=== PATIENT | male | born 1955 | race Caucasian/White ===

== ENCOUNTER 2020-12-18 07:28 | Inpatient (IN) | payer BC, OTHER ==
[~2020-12-18] VITALS: Ht 190.5 cm; Wt 96.5 kg
[2020-12-18] MEDS ORDERED: NITROGLYCERIN 0.4 MG SL TAB SL ONE ×3 (07:45→10:00)
[2020-12-18] MEDS ORDERED: ONDANSETRON HCL 4 MG/2 ML VIAL IV ONE (08:00)
[2020-12-18] MEDS ORDERED: METOPROLOL TARTRATE 1MG/1ML-5ML VIAL IV ONE (08:00)
[2020-12-18] MEDS ORDERED: SODIUM CHLORIDE 0.9% 1,000 ML IVB ONE (08:00)
[2020-12-18] MEDS ORDERED: ENOXAPARIN SOD 100 MG/1 ML SYRINGE SC ONE (08:00)
[2020-12-18] MEDS ORDERED: SODIUM CHLORIDE 0.9% 1,000 ML IV ONE (08:00)
[2020-12-18] MEDS ORDERED: ASPirin 81 mg TAB PO ONE (08:00)
[2020-12-18 08:04] LABS: Basophils # (auto) 0 10 ^3/uL (0-0.2); Basophils % (auto) 0.8 % (0.0-2.0); Eosinophils # (auto) 0.1 10 ^3/uL (0-0.8); Eosinophils % (auto) 2.2 % (0.0-7.0); Hematocrit 47.5 % (41.0-53.0); Hemoglobin 16.8 g/dL (13.5-17.5); Lymphocytes # (auto) 2.1 10 ^3/uL (0.4-5.4); Mean Corpuscular Hemoglobin 31.4 pg (28.0-32.0); Mean Corpuscular Hgb Conc. 35.3 g/dL (32.0-36.0); Mean Corpuscular Volume 88.9 fL (80.0-100.0); Monocytes # (auto) 0.4 10 ^3/uL (0-1.3); Monocytes % (auto) 6.2 % (0.0-12.0); Neutrophils # (auto) 3.2 10 ^3/uL (1.6-8.6); Neutrophils % (auto) 54.8 % (37.0-80.0); Nucleated Red Blood Cells % 0.2 %; Red Blood Cells 5.34 10^6/uL (4.5-5.90); Red Cell Distribution Width 13.3 % (11.8-14.3); White Blood Cell 5.9 10^3/uL (4.4-10.8)
[2020-12-18 08:19] LABS: INR 1.05 (0.9-1.15); Partial Thromboplastin Time 28.1 sec (23.6-33.0)
[2020-12-18 08:29] LABS: Alanine Aminotransferase 27 U/L (16-61); Albumin 3.7 g/dL (3.4-5.0); Anion Gap 7 (5-15); Blood Urea Nitrogen 13 mg/dL (7-18); Calcium 9.7 mg/dL (8.5-10.1); Carbon Dioxide 24 mmol/L (21-32); Chloride 105 mmol/L (98-107); Glucose 310 mg/dL (74-106); Magnesium 2.4 mg/dL (1.6-2.6); Potassium 4.1 mmol/L (3.5-5.1); Sodium 136 mmol/L (136-145)
[2020-12-18] MEDS ORDERED: MORPHINE SULF INJ 2 MG/ML SYRINGE 1ML IV PRN ×3 (08:30→09:45)
[2020-12-18 08:34] LABS: Alkaline Phosphatase 104 U/L (45-117); Aspartate Aminotransferase 13 U/L (15-37); BUN/Creatinine Ratio 16.7; Bilirubin, Total 0.3 mg/dL (0.2-1.0); GFR African American 129 mL/min; GFR Non-African American 107 mL/min; Total Protein 7.8 g/dL (6.4-8.2)
[2020-12-18 09:08] LABS: Urine WBC None Seen /hpf (0 - 3)
[2020-12-18 09:29] LABS: Urine Bacteria NONE SEEN /hpf (None Seen); Urine Blood Negative /uL (Negative); Urine Specific Gravity 1.029 (1.001-1.035)
[2020-12-18] MEDS ORDERED: ONDANSETRON HCL 4 MG/2 ML VIAL IV PRN (09:45)
[2020-12-18] MEDS ORDERED: DEXTROSE (50%) 50ML SYRG IV PRN (09:45)
[2020-12-18] MEDS ORDERED: NITROGLYCERIN 0.4 MG SL TAB SL PRN (09:45)
[2020-12-18] MEDS ORDERED: NITROGLYCERIN 50MG/250ML 250 ML IV ONE (09:45)
[2020-12-18] MEDS ORDERED: HYDROcodone-ACET 5/325MG TAB PO PRN (09:45)
[2020-12-18] MEDS ORDERED: ACETAMINOPHEN 500 MG TAB PO PRN (09:45)
[2020-12-18] MEDS: ASPirin-EC 81 mg tab PO SCH (10:49)
[2020-12-18] MEDS: LISINOPRIL 10 MG TAB PO SCH (10:49)
[2020-12-18] MEDS: InsuLIN REG 1unit/0.01ml Soln (100units/ml) SC SCH ×2 (12:05→23:42)
[2020-12-18] MEDS: ACCU-CHEK COMFORT CURVE STRIP VI SCH ×2 (12:06→23:33)
[2020-12-18] MEDS ORDERED: LIDOCAINE 2%HCL (LOCAL ANESTH.) INJ 20ML MDV ONE (14:11)
[2020-12-18] MEDS ORDERED: fentaNYL CITRATE 100 MCG/2 ML VL ONE (14:15)
[2020-12-18] MEDS ORDERED: ANGIOMAX 250 MG VIAL IV ONE (14:15)
[2020-12-18] MEDS ORDERED: MIDAZOLAM HCL 2MG/2ML 2ml VIAL (1mg/ml) ONE (14:16)
[2020-12-18] MEDS ORDERED: SODIUM CHL 0.9% 50 ML ONE (14:16)
[2020-12-18] MEDS ORDERED: IOHEXOL 350 MG/ML 100ML IJ ONE (14:47)
[2020-12-18] MEDS ORDERED: ATROPINE SULF 1 MG/10ml SYR ONE (14:50)
[2020-12-18] MEDS ORDERED: EPINEPHrine HCL 1 MG/10 ML SYRG ONE (14:50)
[2020-12-18] MEDS ORDERED: TICAGRELOR 90 MG TAB ONE (14:57)
[2020-12-18 17:00] VITALS: BP 125/79
[2020-12-18 17:47] VITALS: BP 125/79
[2020-12-18] MEDS: TICAGRELOR 90 MG TAB PO SCH (21:30)
[2020-12-18] MEDS: ATORVASTATIN 20 MG TAB PO SCH (21:30)
[2020-12-18 22:00] VITALS: BP 107/69
[2020-12-19 05:16] VITALS: BP 107/64
[2020-12-19] MEDS: ACCU-CHEK COMFORT CURVE STRIP VI SCH ×4 (05:41→18:10)
[2020-12-19] MEDS: InsuLIN REG 1unit/0.01ml Soln (100units/ml) SC SCH ×4 (05:44→18:12)
[2020-12-19 09:00] VITALS: BP 110/73
[2020-12-19] MEDS ORDERED: glipiZIDE 5 MG TAB PO ONE (09:45)
[2020-12-19] MEDS: TICAGRELOR 90 MG TAB PO SCH ×2 (10:29→21:50)
[2020-12-19] MEDS: ASPirin-EC 81 mg tab PO SCH (10:30)
[2020-12-19] MEDS: LISINOPRIL 10 MG TAB PO SCH (10:30)
[2020-12-19 12:38] VITALS: BP 132/77
[2020-12-19 16:59] VITALS: BP 105/70
[2020-12-19] MEDS: glipiZIDE 5 MG TAB PO SCH (18:02)
[2020-12-19] MEDS: ATORVASTATIN 20 MG TAB PO SCH (21:50)
[2020-12-19 22:00] VITALS: BP 104/61
[2020-12-20] MEDS: InsuLIN REG 1unit/0.01ml Soln (100units/ml) SC SCH ×3 (00:32→12:00)
[2020-12-20 05:00] VITALS: BP 98/64
[2020-12-20] MEDS: ACCU-CHEK COMFORT CURVE STRIP VI SCH ×3 (06:04→12:20)
[2020-12-20 06:07] LABS: Basophils # (auto) 0 10 ^3/uL (0-0.2); Basophils % (auto) 0.7 % (0.0-2.0); Eosinophils # (auto) 0.1 10 ^3/uL (0-0.8); Eosinophils % (auto) 1.6 % (0.0-7.0); Hematocrit 40.3 % (41.0-53.0); Lymphocytes # (auto) 1.5 10 ^3/uL (0.4-5.4); Lymphocytes % (auto) 23.8 % (10.0-50.0); Mean Corpuscular Hemoglobin 31.2 pg (28.0-32.0); Mean Corpuscular Hgb Conc. 34.8 g/dL (32.0-36.0); Mean Corpuscular Volume 89.6 fL (80.0-100.0); Monocytes # (auto) 0.5 10 ^3/uL (0-1.3); Monocytes % (auto) 8.6 % (0.0-12.0); Neutrophils # (auto) 4.1 10 ^3/uL (1.6-8.6); Neutrophils % (auto) 65.3 % (37.0-80.0); Red Cell Distribution Width 13.4 % (11.8-14.3); White Blood Cell 6.3 10^3/uL (4.4-10.8)
[2020-12-20] MEDS: glipiZIDE 5 MG TAB PO SCH (06:12)
[2020-12-20 06:50] LABS: Potassium 3.8 mmol/L (3.5-5.1)
[2020-12-20 07:11] LABS: Albumin 2.8 g/dL (3.4-5.0); BUN/Creatinine Ratio 19.2; Bilirubin, Total 0.7 mg/dL (0.2-1.0); Calcium 8.8 mg/dL (8.5-10.1); Total Protein 6.1 g/dL (6.4-8.2)
[2020-12-20 07:30] VITALS: BP 98/64
[2020-12-20 09:00] VITALS: BP 120/80
[2020-12-20] MEDS: ASPirin-EC 81 mg tab PO SCH (10:23)
[2020-12-20] MEDS: LISINOPRIL 10 MG TAB PO SCH (10:23)
[2020-12-20] MEDS: TICAGRELOR 90 MG TAB PO SCH (10:23)
[2020-12-20 13:00] VITALS: BP 127/90
[2020-12-20 16:47] VITALS: BP 127/90
== END 2020-12-20 18:40 | disposition home or self-care (01) | DRG 247 ==
LOC: ER 07:28 → TELE 09:32 → TELE-WESTW 12:35
PROVIDERS: ADMIT Nurse Practitioner Acute Care; ATTEND Internal Medicine
PROC: 027034Z Dilation of Coronary Artery, One Artery with Drug-eluting Intraluminal Device, Percutaneous Approach (ICD-10-PCS; principal; 2020-12-18)
PROC: B2111ZZ Fluoroscopy of Multiple Coronary Arteries using Low Osmolar Contrast (ICD-10-PCS; 2020-12-18)
DX: I21.29 ST elevation (STEMI) myocardial infarction involving other sites (principal); E66.9 Obesity, unspecified; Z68.26 Body mass index [BMI] 26.0-26.9, adult; Z20.822 Contact with and (suspected) exposure to COVID-19; I10 Essential (primary) hypertension; E11.65 Type 2 diabetes mellitus with hyperglycemia; E78.5 Hyperlipidemia, unspecified; Z79.82 Long term (current) use of aspirin; Z79.84 Long term (current) use of oral hypoglycemic drugs; Z79.899 Other long term (current) drug therapy; Z82.49 Family history of ischemic heart disease and other diseases of the circulatory system; Z83.3 Family history of diabetes mellitus
CPT/HCPCS: 36415; 71045; 80053; 81001; 82962; 83036; 83735; 84443; 84484; 85025; 85379; 85610; 85730; 86141; 87426; 92928; 93005; 93306; 93454; 96365; 96366; 96372; 96375; 99152; 99153; 99291; C1874; G0378; J1815; J2250; J2405

== ENCOUNTER 2021-01-02 10:19 | Inpatient (IN) | payer BC ==
[~2021-01-02] VITALS: Ht 182.9 cm; Wt 83.5 kg
[2021-01-02] MEDS ORDERED: DexAMETHasone SOD PHOS 10MG/1ML VIAL INJ IV ONE (10:45)
[2021-01-02 10:59] LABS: Basophils # (auto) 0 10 ^3/uL (0-0.2); Basophils % (auto) 0.1 % (0.0-2.0); Eosinophils # (auto) 0 10 ^3/uL (0-0.8); Hematocrit 41.2 % (41.0-53.0); Hemoglobin 14.7 g/dL (13.5-17.5); Lymphocytes # (auto) 0.4 10 ^3/uL (0.4-5.4); Lymphocytes % (auto) 5.1 % (10.0-50.0); Mean Corpuscular Hemoglobin 31.3 pg (28.0-32.0); Mean Corpuscular Hgb Conc. 35.7 g/dL (32.0-36.0); Mean Corpuscular Volume 87.8 fL (80.0-100.0); Monocytes # (auto) 0.2 10 ^3/uL (0-1.3); Monocytes % (auto) 3.4 % (0.0-12.0); Neutrophils # (auto) 6.4 10 ^3/uL (1.6-8.6); Neutrophils % (auto) 91.4 % (37.0-80.0); Nucleated Red Blood Cells % 0.1 %; Red Blood Cells 4.69 10^6/uL (4.5-5.90); Red Cell Distribution Width 13.2 % (11.8-14.3)
[2021-01-02 11:16] LABS: Albumin 2.4 g/dL (3.4-5.0); Calcium 9.4 mg/dL (8.5-10.1); Potassium 4.4 mmol/L (3.5-5.1)
[2021-01-02 11:19] LABS: Lactic Acid w/Reflex 2.2 mmol/L (0.4-2.0)
[2021-01-02 11:29] LABS: BUN/Creatinine Ratio 23.3; Bilirubin, Total 0.7 mg/dL (0.2-1.0); Total Protein 7.4 g/dL (6.4-8.2)
[2021-01-02 15:20] LABS: Urine Bacteria FEW /hpf (None Seen); Urine Blood Negative /uL (Negative); Urine Mucus FEW (None Seen); Urine Specific Gravity 1.027 (1.001-1.035); Urine WBC 3 /hpf (0 - 3)
[2021-01-02] MEDS ORDERED: DEXTROSE (50%) 50ML SYRG IV PRN (18:30)
[2021-01-02] MEDS ORDERED: ONDANSETRON HCL 4 MG/2 ML VIAL IV PRN (18:30)
[2021-01-02] MEDS ORDERED: MORPHINE SULFATE INJECTION 2 MG/ML SYRG IV PRN ×2 (18:30)
[2021-01-02] MEDS ORDERED: DOCUSATE CALCIUM 240 MG CAP PO PRN (18:30)
[2021-01-02] MEDS ORDERED: ACETAMINOPHEN 500 MG TAB PO PRN (18:30)
[2021-01-02] MEDS ORDERED: NITROGLYCERIN 0.4 MG SL TAB SL PRN (18:30)
[2021-01-02] MEDS ORDERED: SODIUM CHLORIDE 0.9% 500 ML IV ONE (18:45)
[2021-01-02] MEDS: cefTRIAXone 1GM/50ML D5W 50 ML IV SCH (19:27)
[2021-01-02] MEDS: CHOLECALCIFEROL (VITD3) 2,000 UNIT CAP/TAB PO SCH (19:28)
[2021-01-02] MEDS: ASCORBIC ACID 1,000 MG TAB PO SCH (19:28)
[2021-01-02] MEDS: ZINC SULFATE 220mg CAP or TAB PO SCH (19:28)
[2021-01-02 19:44] VITALS: BP 108/68
[2021-01-02] MEDS: SODIUM CHLORIDE 0.9% 1,000 ML IV SCH (21:24)
[2021-01-02] MEDS: ENOXAPARIN SOD 40 MG/0.4 ML SYRINGE SC SCH (21:25)
[2021-01-02] MEDS: AZITHROMYCIN 500MG/ 250ML 250 ML IV SCH (21:25)
[2021-01-02 21:30] VITALS: BP 116/68
[2021-01-02] MEDS ORDERED: INSULIN LANTUS (GLARGINE) 1 /0.01ml (100units/ml) SC SCH (22:00)
[2021-01-02] MEDS: BUDESONIDE (INHALATION) 180 MCG IH IN SCH (22:18)
[2021-01-02] MEDS: ALBUTEROL SULF HFA 90MCG INH 200DOSE IN PRN (22:19)
[2021-01-02 23:05] VITALS: BP 116/68
[2021-01-03] MEDS ORDERED: ASPI-325 PO (00:01)
[2021-01-03] MEDS ORDERED: TICA90TA PO (00:01)
[2021-01-03] MEDS ORDERED: LISI-275 PO (00:01)
[2021-01-03] MEDS ORDERED: LOS25T PO (00:01)
[2021-01-03] MEDS ORDERED: ATOR20TA50 PO (00:01)
[2021-01-03] MEDS ORDERED: GLIP10TA9 PO (00:01)
[2021-01-03] MEDS ORDERED: CLOP75TA70 PO (00:01)
[2021-01-03] MEDS: ACCU-CHEK COMFORT CURVE STRIP VI SCH ×5 (00:09→23:52)
[2021-01-03] MEDS: InsuLIN REG 1unit/0.01ml Soln (100units/ml) SC SCH ×5 (00:13→23:56)
[2021-01-03 05:59] LABS: Basophils # (auto) 0 10 ^3/uL (0-0.2); Basophils % (auto) 0.1 % (0.0-2.0); Eosinophils # (auto) 0 10 ^3/uL (0-0.8); Hematocrit 39.1 % (41.0-53.0); Hemoglobin 13.9 g/dL (13.5-17.5); Lymphocytes # (auto) 0.4 10 ^3/uL (0.4-5.4); Lymphocytes % (auto) 6.4 % (10.0-50.0); Mean Corpuscular Hemoglobin 30.7 pg (28.0-32.0); Mean Corpuscular Hgb Conc. 35.5 g/dL (32.0-36.0); Mean Corpuscular Volume 86.4 fL (80.0-100.0); Monocytes # (auto) 0.4 10 ^3/uL (0-1.3); Monocytes % (auto) 6.8 % (0.0-12.0); Neutrophils # (auto) 4.8 10 ^3/uL (1.6-8.6); Neutrophils % (auto) 86.7 % (37.0-80.0); Red Blood Cells 4.53 10^6/uL (4.5-5.90); Red Cell Distribution Width 13.6 % (11.8-14.3); White Blood Cell 5.6 10^3/uL (4.4-10.8)
[2021-01-03 06:08] LABS: Calcium 10.1 mg/dL (8.5-10.1); Magnesium 2.8 mg/dL (1.6-2.6); Potassium 4.4 mmol/L (3.5-5.1)
[2021-01-03 06:16] LABS: Thyroid Stimulating Hormone 0.5 uIU/mL (0.358-3.74)
[2021-01-03 06:19] LABS: Albumin 2.1 g/dL (3.4-5.0); BUN/Creatinine Ratio 33.8; Bilirubin, Total 0.4 mg/dL (0.2-1.0); CRP High Sensitivity 11.3 mg/dL (< 0.3); Total Protein 6.9 g/dL (6.4-8.2)
[2021-01-03] MEDS: BUDESONIDE (INHALATION) 180 MCG IH IN SCH ×2 (07:21→22:00)
[2021-01-03] MEDS: ALBUTEROL SULF HFA 90MCG INH 200DOSE IN PRN (07:21)
[2021-01-03 09:00] VITALS: BP 105/66
[2021-01-03] MEDS: cefTRIAXone 1GM/50ML D5W 50 ML IV SCH (09:04)
[2021-01-03] MEDS: SODIUM CHLORIDE 0.9% 1,000 ML IV SCH (09:04)
[2021-01-03] MEDS: CHOLECALCIFEROL (VITD3) 2,000 UNIT CAP/TAB PO SCH (09:05)
[2021-01-03] MEDS: ZINC SULFATE 220mg CAP or TAB PO SCH (09:05)
[2021-01-03] MEDS: ENOXAPARIN SOD 40 MG/0.4 ML SYRINGE SC SCH ×2 (09:05→22:47)
[2021-01-03] MEDS: PANTOPRAZOLE 40 MG TAB PO SCH (09:05)
[2021-01-03] MEDS: ASCORBIC ACID 1,000 MG TAB PO SCH (09:05)
[2021-01-03] MEDS ORDERED: LISINOPRIL 5 MG TAB PO SCH (10:00)
[2021-01-03 10:09] LABS: Cholesterol 106 mg/dL (< 200)
[2021-01-03 10:11] LABS: HDL Cholesterol 38 mg/dL (40-59); LDL Cholesterol 53 mg/dL (< 100); Triglycerides 102 mg/dL (< 150)
[2021-01-03] MEDS ORDERED: REMDESIVIR PER PHARMACY 0 ML IV SCH (11:30)
[2021-01-03] MEDS ORDERED: DexAMETHasone SOD PHOS 10MG/1ML VIAL INJ IV ONE (11:30)
[2021-01-03] MEDS: AZITHROMYCIN 500MG/ 250ML 250 ML IV SCH (12:23)
[2021-01-03] MEDS: ASPirin 81 mg TAB PO SCH (12:24)
[2021-01-03] MEDS: CLOPIDOGREL BISULFATE 75 MG TAB PO SCH (12:24)
[2021-01-03] MEDS: CARVEDILOL 3.125 MG TAB PO SCH ×2 (12:30→22:47)
[2021-01-03 13:00] VITALS: BP 124/70
[2021-01-03] MEDS ORDERED: TOCILIZUMAB 400 MG in SODIUM CHL 0.9% 80 ML IV ONE (13:30)
[2021-01-03] MEDS ORDERED: REMDESIVIR 200 MG in NS 210ml LOADING DOSE ADULT IV ONE (15:00)
[2021-01-03 17:00] VITALS: BP 109/68
[2021-01-03 22:00] VITALS: BP 101/70
[2021-01-03] MEDS: ATORVASTATIN 20 MG TAB PO SCH (22:47)
[2021-01-03] MEDS: INSULIN LANTUS (GLARGINE) 1 /0.01ml (100units/ml) SC SCH (22:57)
[2021-01-04] MEDS: ALBUTEROL SULF HFA 90MCG INH 200DOSE IN PRN ×3 (00:44→18:57)
[2021-01-04 05:00] VITALS: BP 100/66
[2021-01-04] MEDS: ACCU-CHEK COMFORT CURVE STRIP VI SCH ×4 (06:27→23:17)
[2021-01-04] MEDS: InsuLIN REG 1unit/0.01ml Soln (100units/ml) SC SCH ×4 (06:40→23:23)
[2021-01-04 07:02] LABS: Basophils # (auto) 0 10 ^3/uL (0-0.2); Basophils % (auto) 0.1 % (0.0-2.0); Eosinophils # (auto) 0 10 ^3/uL (0-0.8); Hemoglobin 13.9 g/dL (13.5-17.5); Lymphocytes # (auto) 0.5 10 ^3/uL (0.4-5.4); Lymphocytes % (auto) 8.2 % (10.0-50.0); Mean Corpuscular Hemoglobin 31.3 pg (28.0-32.0); Mean Corpuscular Hgb Conc. 35.6 g/dL (32.0-36.0); Mean Corpuscular Volume 87.8 fL (80.0-100.0); Monocytes # (auto) 0.5 10 ^3/uL (0-1.3); Monocytes % (auto) 8.4 % (0.0-12.0); Neutrophils # (auto) 4.6 10 ^3/uL (1.6-8.6); Neutrophils % (auto) 83.3 % (37.0-80.0); Nucleated Red Blood Cells % 0.1 %; Red Blood Cells 4.44 10^6/uL (4.5-5.90); Red Cell Distribution Width 13.4 % (11.8-14.3); White Blood Cell 5.5 10^3/uL (4.4-10.8)
[2021-01-04] MEDS: BUDESONIDE (INHALATION) 180 MCG IH IN SCH ×2 (07:05→18:57)
[2021-01-04 07:16] LABS: INR 1.1 (0.9-1.15); Partial Thromboplastin Time 26.6 sec (23.6-33.0)
[2021-01-04 07:20] LABS: Albumin 1.9 g/dL (3.4-5.0); Calcium 9.7 mg/dL (8.5-10.1); Potassium 4.4 mmol/L (3.5-5.1)
[2021-01-04 07:25] LABS: BUN/Creatinine Ratio 47.3; Bilirubin, Total 0.4 mg/dL (0.2-1.0); Total Protein 6.1 g/dL (6.4-8.2)
[2021-01-04 09:00] VITALS: BP 102/69
[2021-01-04] MEDS ORDERED: TOCILIZUMAB 400 MG in SODIUM CHL 0.9% 80 ML IV ONE (09:00)
[2021-01-04] MEDS: cefTRIAXone 1GM/50ML D5W 50 ML IV SCH (09:12)
[2021-01-04] MEDS: CLOPIDOGREL BISULFATE 75 MG TAB PO SCH (09:13)
[2021-01-04] MEDS: ZINC SULFATE 220mg CAP or TAB PO SCH (09:13)
[2021-01-04] MEDS: ASPirin 81 mg TAB PO SCH (09:13)
[2021-01-04] MEDS: AZITHROMYCIN 500MG/ 250ML 250 ML IV SCH (09:13)
[2021-01-04] MEDS: PANTOPRAZOLE 40 MG TAB PO SCH (09:14)
[2021-01-04] MEDS: ASCORBIC ACID 1,000 MG TAB PO SCH (09:14)
[2021-01-04] MEDS: ENOXAPARIN SOD 40 MG/0.4 ML SYRINGE SC SCH ×2 (09:14→23:04)
[2021-01-04] MEDS: CARVEDILOL 3.125 MG TAB PO SCH (09:14)
[2021-01-04] MEDS: CHOLECALCIFEROL (VITD3) 2,000 UNIT CAP/TAB PO SCH (09:14)
[2021-01-04] MEDS ORDERED: DexAMETHasone SOD PHOS 10MG/1ML VIAL INJ IV SCH (10:00)
[2021-01-04] MEDS: INSULIN LANTUS (GLARGINE) 1 /0.01ml (100units/ml) SC SCH ×2 (10:22→23:04)
[2021-01-04] MEDS ORDERED: POTASSIUM CHL 20 Meq TABLET PO ONE (11:30)
[2021-01-04] MEDS ORDERED: FUROSEMIDE 20 MG/2 ML VIAL IV ONE (11:30)
[2021-01-04 13:00] VITALS: BP 116/72
[2021-01-04] MEDS: REMDESIVIR 100mg 100 MG in SODIUM CHL 0.9% 230 ML IV SCH (15:36)
[2021-01-04 17:00] VITALS: BP 114/64
[2021-01-04 22:00] VITALS: BP 104/69
[2021-01-04] MEDS: ATORVASTATIN 20 MG TAB PO SCH (23:02)
[2021-01-05 05:00] VITALS: BP 113/69
[2021-01-05] MEDS: ACCU-CHEK COMFORT CURVE STRIP VI SCH ×4 (06:19→23:10)
[2021-01-05] MEDS: InsuLIN REG 1unit/0.01ml Soln (100units/ml) SC SCH ×4 (06:28→23:14)
[2021-01-05] MEDS: ALBUTEROL SULF HFA 90MCG INH 200DOSE IN PRN ×2 (06:58→21:26)
[2021-01-05] MEDS: BUDESONIDE (INHALATION) 180 MCG IH IN SCH ×2 (06:58→21:25)
[2021-01-05 07:33] LABS: Calcium 9.6 mg/dL (8.5-10.1); Potassium 4.1 mmol/L (3.5-5.1)
[2021-01-05 07:36] LABS: BUN/Creatinine Ratio 46.3; Bilirubin, Total 0.4 mg/dL (0.2-1.0); Total Protein 5.9 g/dL (6.4-8.2)
[2021-01-05] MEDS: DexAMETHasone SOD PHOS 4 MG/1ML SDV INJ IV SCH (08:51)
[2021-01-05] MEDS: AZITHROMYCIN 500MG/ 250ML 250 ML IV SCH (08:51)
[2021-01-05] MEDS: cefTRIAXone 1GM/50ML D5W 50 ML IV SCH (08:51)
[2021-01-05] MEDS: ENOXAPARIN SOD 40 MG/0.4 ML SYRINGE SC SCH ×2 (08:52→22:06)
[2021-01-05] MEDS: CHOLECALCIFEROL (VITD3) 2,000 UNIT CAP/TAB PO SCH (08:52)
[2021-01-05] MEDS: ASPirin 81 mg TAB PO SCH (08:52)
[2021-01-05] MEDS: CLOPIDOGREL BISULFATE 75 MG TAB PO SCH (08:52)
[2021-01-05] MEDS: ASCORBIC ACID 1,000 MG TAB PO SCH (08:52)
[2021-01-05] MEDS: ZINC SULFATE 220mg CAP or TAB PO SCH (08:52)
[2021-01-05] MEDS: PANTOPRAZOLE 40 MG TAB PO SCH (08:52)
[2021-01-05 09:00] VITALS: BP 108/67
[2021-01-05] MEDS: INSULIN LANTUS (GLARGINE) 1 /0.01ml (100units/ml) SC SCH ×2 (11:40→22:41)
[2021-01-05 13:00] VITALS: BP 129/80
[2021-01-05] MEDS ORDERED: IOHEXOL 350 MG/ML 100ML IJ ONE (13:22)
[2021-01-05] MEDS: REMDESIVIR 100mg 100 MG in SODIUM CHL 0.9% 230 ML IV SCH (14:37)
[2021-01-05 17:00] VITALS: BP 105/61
[2021-01-05 22:00] VITALS: BP 121/75
[2021-01-05] MEDS: ATORVASTATIN 20 MG TAB PO SCH (22:07)
[2021-01-06 01:05] VITALS: BP 121/75
[2021-01-06 05:00] VITALS: BP 104/62
[2021-01-06 05:26] LABS: Basophils # (auto) 0 10 ^3/uL (0-0.2); Basophils % (auto) 0.1 % (0.0-2.0); Eosinophils # (auto) 0 10 ^3/uL (0-0.8); Eosinophils % (auto) 0.4 % (0.0-7.0); Hematocrit 40.9 % (41.0-53.0); Hemoglobin 14.1 g/dL (13.5-17.5); Lymphocytes # (auto) 0.8 10 ^3/uL (0.4-5.4); Lymphocytes % (auto) 17.5 % (10.0-50.0); Mean Corpuscular Hemoglobin 30.6 pg (28.0-32.0); Mean Corpuscular Hgb Conc. 34.6 g/dL (32.0-36.0); Mean Corpuscular Volume 88.5 fL (80.0-100.0); Monocytes # (auto) 0.2 10 ^3/uL (0-1.3); Monocytes % (auto) 4.5 % (0.0-12.0); Neutrophils # (auto) 3.6 10 ^3/uL (1.6-8.6); Neutrophils % (auto) 77.5 % (37.0-80.0); Nucleated Red Blood Cells % 0.2 %; Red Blood Cells 4.62 10^6/uL (4.5-5.90); Red Cell Distribution Width 13.1 % (11.8-14.3); White Blood Cell 4.6 10^3/uL (4.4-10.8)
[2021-01-06 05:43] LABS: Calcium 9.1 mg/dL (8.5-10.1); Magnesium 2.5 mg/dL (1.6-2.6); Potassium 3.6 mmol/L (3.5-5.1)
[2021-01-06 05:51] LABS: BUN/Creatinine Ratio 48.8; Bilirubin, Total 0.5 mg/dL (0.2-1.0); CRP High Sensitivity 1.43 mg/dL (< 0.3); Total Protein 5.6 g/dL (6.4-8.2)
[2021-01-06] MEDS: InsuLIN REG 1unit/0.01ml Soln (100units/ml) SC SCH ×4 (06:00→23:46)
[2021-01-06] MEDS: ACCU-CHEK COMFORT CURVE STRIP VI SCH ×4 (06:28→23:04)
[2021-01-06 09:00] VITALS: BP 110/69
[2021-01-06] MEDS: ALBUTEROL SULF HFA 90MCG INH 200DOSE IN PRN ×2 (09:22→19:39)
[2021-01-06] MEDS: BUDESONIDE (INHALATION) 180 MCG IH IN SCH ×2 (09:23→19:39)
[2021-01-06] MEDS: ENOXAPARIN SOD 40 MG/0.4 ML SYRINGE SC SCH ×2 (09:36→21:45)
[2021-01-06] MEDS: DexAMETHasone SOD PHOS 4 MG/1ML SDV INJ IV SCH (09:36)
[2021-01-06] MEDS: AZITHROMYCIN 500MG/ 250ML 250 ML IV SCH (09:36)
[2021-01-06] MEDS: cefTRIAXone 1GM/50ML D5W 50 ML IV SCH (09:36)
[2021-01-06] MEDS: PANTOPRAZOLE 40 MG TAB PO SCH (09:37)
[2021-01-06] MEDS: CLOPIDOGREL BISULFATE 75 MG TAB PO SCH (09:37)
[2021-01-06] MEDS: ASPirin 81 mg TAB PO SCH (09:37)
[2021-01-06] MEDS: CHOLECALCIFEROL (VITD3) 2,000 UNIT CAP/TAB PO SCH (09:37)
[2021-01-06] MEDS: ASCORBIC ACID 1,000 MG TAB PO SCH (09:37)
[2021-01-06] MEDS: ZINC SULFATE 220mg CAP or TAB PO SCH (09:37)
[2021-01-06] MEDS: INSULIN LANTUS (GLARGINE) 1 /0.01ml (100units/ml) SC SCH ×2 (10:02→23:06)
[2021-01-06 12:38] VITALS: BP 125/79
[2021-01-06] MEDS: REMDESIVIR 100mg 100 MG in SODIUM CHL 0.9% 230 ML IV SCH (15:40)
[2021-01-06 16:44] VITALS: BP 122/79
[2021-01-06] MEDS: ATORVASTATIN 20 MG TAB PO SCH (21:45)
[2021-01-06 22:00] VITALS: BP 116/74
[2021-01-07 05:00] VITALS: BP 126/87
[2021-01-07] MEDS: InsuLIN REG 1unit/0.01ml Soln (100units/ml) SC SCH ×3 (06:00→17:28)
[2021-01-07] MEDS: ACCU-CHEK COMFORT CURVE STRIP VI SCH ×3 (06:20→17:28)
[2021-01-07 06:41] LABS: Potassium 3.9 mmol/L (3.5-5.1)
[2021-01-07 07:16] LABS: Albumin 2.1 g/dL (3.4-5.0); BUN/Creatinine Ratio 38.6; Bilirubin, Total 0.4 mg/dL (0.2-1.0); Calcium 9.5 mg/dL (8.5-10.1); Total Protein 5.7 g/dL (6.4-8.2)
[2021-01-07] MEDS: BUDESONIDE (INHALATION) 180 MCG IH IN SCH ×2 (07:29→19:08)
[2021-01-07] MEDS: ALBUTEROL SULF HFA 90MCG INH 200DOSE IN PRN ×2 (07:29→19:08)
[2021-01-07] MEDS: ZINC SULFATE 220mg CAP or TAB PO SCH (08:49)
[2021-01-07] MEDS: AZITHROMYCIN 250 MG TAB PO SCH (08:49)
[2021-01-07] MEDS: CHOLECALCIFEROL (VITD3) 2,000 UNIT CAP/TAB PO SCH (08:49)
[2021-01-07] MEDS: PANTOPRAZOLE 40 MG TAB PO SCH (08:50)
[2021-01-07] MEDS: CLOPIDOGREL BISULFATE 75 MG TAB PO SCH (08:50)
[2021-01-07] MEDS: ENOXAPARIN SOD 40 MG/0.4 ML SYRINGE SC SCH ×2 (08:50→22:42)
[2021-01-07] MEDS: ASCORBIC ACID 1,000 MG TAB PO SCH (08:50)
[2021-01-07] MEDS: DexAMETHasone SOD PHOS 4 MG/1ML SDV INJ IV SCH (08:51)
[2021-01-07] MEDS: cefTRIAXone 1GM/50ML D5W 50 ML IV SCH (08:51)
[2021-01-07] MEDS: ASPirin 81 mg TAB PO SCH (08:54)
[2021-01-07 09:00] VITALS: BP 110/66
[2021-01-07] MEDS ORDERED: POTASSIUM CHL 20 Meq TABLET PO ONE (10:45)
[2021-01-07] MEDS ORDERED: FUROSEMIDE 20 MG/2 ML VIAL IV ONE (10:45)
[2021-01-07 13:00] VITALS: BP 103/64
[2021-01-07] MEDS: REMDESIVIR 100mg 100 MG in SODIUM CHL 0.9% 230 ML IV SCH (14:35)
[2021-01-07 17:00] VITALS: BP 117/80
[2021-01-07] MEDS: INSULIN LANTUS (GLARGINE) 1 /0.01ml (100units/ml) SC SCH (17:28)
[2021-01-07 22:00] VITALS: BP 115/74
[2021-01-07] MEDS: ATORVASTATIN 20 MG TAB PO SCH (22:42)
[2021-01-08] MEDS: InsuLIN REG 1unit/0.01ml Soln (100units/ml) SC SCH ×5 (00:40→23:42)
[2021-01-08] MEDS: ACCU-CHEK COMFORT CURVE STRIP VI SCH ×5 (00:40→23:38)
[2021-01-08 05:00] VITALS: BP 129/79
[2021-01-08 09:18] VITALS: BP 137/85
[2021-01-08] MEDS: cefTRIAXone 1GM/50ML D5W 50 ML IV SCH (09:32)
[2021-01-08] MEDS: ZINC SULFATE 220mg CAP or TAB PO SCH (09:33)
[2021-01-08] MEDS: ASPirin 81 mg TAB PO SCH (09:33)
[2021-01-08] MEDS: CLOPIDOGREL BISULFATE 75 MG TAB PO SCH (09:33)
[2021-01-08] MEDS: PANTOPRAZOLE 40 MG TAB PO SCH (09:33)
[2021-01-08] MEDS: DexAMETHasone SOD PHOS 4 MG/1ML SDV INJ IV SCH (09:33)
[2021-01-08] MEDS: ENOXAPARIN SOD 40 MG/0.4 ML SYRINGE SC SCH ×2 (09:34→21:32)
[2021-01-08] MEDS: AZITHROMYCIN 250 MG TAB PO SCH (09:34)
[2021-01-08] MEDS: CHOLECALCIFEROL (VITD3) 2,000 UNIT CAP/TAB PO SCH (09:34)
[2021-01-08] MEDS: ASCORBIC ACID 1,000 MG TAB PO SCH (09:34)
[2021-01-08] MEDS ORDERED: NYSTATIN (MOUTH-THROAT) 500,000 UNITS/5 ML SUSP MT ONE (10:45)
[2021-01-08] MEDS ORDERED: FLUCONAZOLE 100 MG TAB PO ONE (10:45)
[2021-01-08] MEDS ORDERED: SALINE 0.65 % NASAL SPRAY 45ML BOTTLE EACHNOSTRI ONE (10:45)
[2021-01-08] MEDS: BUDESONIDE (INHALATION) 180 MCG IH IN SCH ×2 (11:08→19:00)
[2021-01-08] MEDS: ALBUTEROL SULF HFA 90MCG INH 200DOSE IN PRN ×2 (11:08→19:00)
[2021-01-08] MEDS: SALINE 0.65 % NASAL SPRAY 45ML BOTTLE EACHNOSTRI SCH ×3 (12:00→21:30)
[2021-01-08] MEDS: NYSTATIN (MOUTH-THROAT) 500,000 UNITS/5 ML SUSP MT SCH ×3 (12:00→21:30)
[2021-01-08 12:43] VITALS: BP 120/80
[2021-01-08 17:17] VITALS: BP 93/61
[2021-01-08] MEDS: INSULIN LANTUS (GLARGINE) 1 /0.01ml (100units/ml) SC SCH (17:56)
[2021-01-08] MEDS: ATORVASTATIN 20 MG TAB PO SCH (21:32)
[2021-01-08 22:00] VITALS: BP 112/74
[2021-01-09 05:00] VITALS: BP 126/85
[2021-01-09 05:52] LABS: Basophils # (auto) 0 10 ^3/uL (0-0.2); Basophils % (auto) 0.7 % (0.0-2.0); Eosinophils # (auto) 0.2 10 ^3/uL (0-0.8); Eosinophils % (auto) 2.9 % (0.0-7.0); Hematocrit 45.5 % (41.0-53.0); Lymphocytes # (auto) 0.4 10 ^3/uL (0.4-5.4); Mean Corpuscular Hemoglobin 30.6 pg (28.0-32.0); Mean Corpuscular Hgb Conc. 35.1 g/dL (32.0-36.0); Mean Corpuscular Volume 87.4 fL (80.0-100.0); Monocytes # (auto) 0.2 10 ^3/uL (0-1.3); Monocytes % (auto) 4.1 % (0.0-12.0); Neutrophils # (auto) 4.8 10 ^3/uL (1.6-8.6); Neutrophils % (auto) 85.3 % (37.0-80.0); Nucleated Red Blood Cells % 0.2 %; Potassium 4.2 mmol/L (3.5-5.1); Red Blood Cells 5.21 10^6/uL (4.5-5.90); Red Cell Distribution Width 13.4 % (11.8-14.3); White Blood Cell 5.7 10^3/uL (4.4-10.8)
[2021-01-09] MEDS: InsuLIN REG 1unit/0.01ml Soln (100units/ml) SC SCH ×4 (06:00→23:43)
[2021-01-09 06:01] LABS: Calcium 9.8 mg/dL (8.5-10.1)
[2021-01-09] MEDS: NYSTATIN (MOUTH-THROAT) 500,000 UNITS/5 ML SUSP MT SCH ×4 (06:24→21:50)
[2021-01-09] MEDS: SALINE 0.65 % NASAL SPRAY 45ML BOTTLE EACHNOSTRI SCH ×4 (06:24→21:50)
[2021-01-09] MEDS: ACCU-CHEK COMFORT CURVE STRIP VI SCH ×4 (06:25→23:38)
[2021-01-09] MEDS: BUDESONIDE (INHALATION) 180 MCG IH IN SCH ×2 (06:57→21:13)
[2021-01-09] MEDS: ALBUTEROL SULF HFA 90MCG INH 200DOSE IN PRN ×2 (06:57→21:13)
[2021-01-09 08:29] VITALS: BP 106/70
[2021-01-09] MEDS: cefTRIAXone 1GM/50ML D5W 50 ML IV SCH (08:51)
[2021-01-09] MEDS: DexAMETHasone SOD PHOS 4 MG/1ML SDV INJ IV SCH (08:51)
[2021-01-09] MEDS: ZINC SULFATE 220mg CAP or TAB PO SCH (08:52)
[2021-01-09] MEDS: FLUCONAZOLE 100 MG TAB PO SCH (08:52)
[2021-01-09] MEDS: ASPirin 81 mg TAB PO SCH (08:52)
[2021-01-09] MEDS: CLOPIDOGREL BISULFATE 75 MG TAB PO SCH (08:53)
[2021-01-09] MEDS: PANTOPRAZOLE 40 MG TAB PO SCH (08:54)
[2021-01-09] MEDS: AZITHROMYCIN 250 MG TAB PO SCH (08:55)
[2021-01-09] MEDS: CHOLECALCIFEROL (VITD3) 2,000 UNIT CAP/TAB PO SCH (08:55)
[2021-01-09] MEDS: ASCORBIC ACID 1,000 MG TAB PO SCH (08:55)
[2021-01-09] MEDS: ENOXAPARIN SOD 40 MG/0.4 ML SYRINGE SC SCH ×2 (08:56→21:50)
[2021-01-09 12:26] VITALS: BP 110/77
[2021-01-09] MEDS ORDERED: FUROSEMIDE 20 MG/2 ML VIAL IV ONE (14:45)
[2021-01-09] MEDS ORDERED: POTASSIUM CHL 20 Meq TABLET PO ONE (14:45)
[2021-01-09 16:59] VITALS: BP 116/78
[2021-01-09] MEDS: Ensure HIGH Protein Chocolate 8oz Bottle PO SCH (18:19)
[2021-01-09] MEDS: INSULIN LANTUS (GLARGINE) 1 /0.01ml (100units/ml) SC SCH (18:21)
[2021-01-09] MEDS: ATORVASTATIN 20 MG TAB PO SCH (21:50)
[2021-01-09 21:51] VITALS: BP 112/74
[2021-01-10 05:00] VITALS: BP 110/75
[2021-01-10] MEDS: ALBUTEROL SULF HFA 90MCG INH 200DOSE IN PRN ×2 (05:59→22:10)
[2021-01-10] MEDS: BUDESONIDE (INHALATION) 180 MCG IH IN SCH ×2 (05:59→22:09)
[2021-01-10] MEDS: ACCU-CHEK COMFORT CURVE STRIP VI SCH ×4 (06:38→23:58)
[2021-01-10] MEDS: NYSTATIN (MOUTH-THROAT) 500,000 UNITS/5 ML SUSP MT SCH ×4 (06:38→22:09)
[2021-01-10] MEDS: SALINE 0.65 % NASAL SPRAY 45ML BOTTLE EACHNOSTRI SCH ×4 (06:38→22:08)
[2021-01-10] MEDS: InsuLIN REG 1unit/0.01ml Soln (100units/ml) SC SCH ×4 (06:45→23:59)
[2021-01-10] MEDS: DexAMETHasone SOD PHOS 4 MG/1ML SDV INJ IV SCH ×2 (08:47→22:09)
[2021-01-10] MEDS: ENOXAPARIN SOD 40 MG/0.4 ML SYRINGE SC SCH ×2 (08:47→22:10)
[2021-01-10] MEDS: cefTRIAXone 1GM/50ML D5W 50 ML IV SCH (08:47)
[2021-01-10] MEDS: ZINC SULFATE 220mg CAP or TAB PO SCH (08:48)
[2021-01-10] MEDS: AZITHROMYCIN 250 MG TAB PO SCH (08:48)
[2021-01-10] MEDS: ASPirin 81 mg TAB PO SCH (08:48)
[2021-01-10] MEDS: PANTOPRAZOLE 40 MG TAB PO SCH (08:48)
[2021-01-10] MEDS: FLUCONAZOLE 100 MG TAB PO SCH (08:48)
[2021-01-10] MEDS: CHOLECALCIFEROL (VITD3) 2,000 UNIT CAP/TAB PO SCH (08:48)
[2021-01-10] MEDS: ASCORBIC ACID 1,000 MG TAB PO SCH (08:48)
[2021-01-10] MEDS: Ensure HIGH Protein Chocolate 8oz Bottle PO SCH ×3 (08:49→17:40)
[2021-01-10] MEDS: CLOPIDOGREL BISULFATE 75 MG TAB PO SCH (08:49)
[2021-01-10 09:10] VITALS: BP 104/70
[2021-01-10] MEDS ORDERED: POTASSIUM CHL 20 Meq TABLET PO ONE (11:00)
[2021-01-10] MEDS ORDERED: FUROSEMIDE 20 MG/2 ML VIAL IV ONE (11:00)
[2021-01-10 13:00] VITALS: BP 124/84
[2021-01-10 17:00] VITALS: BP 107/72
[2021-01-10] MEDS: INSULIN LANTUS (GLARGINE) 1 /0.01ml (100units/ml) SC SCH (17:41)
[2021-01-10 22:00] VITALS: BP 110/72
[2021-01-10] MEDS: ATORVASTATIN 20 MG TAB PO SCH (22:10)
[2021-01-11 05:00] VITALS: BP 120/84
[2021-01-11 06:00] LABS: Potassium 4.9 mmol/L (3.5-5.1)
[2021-01-11] MEDS: SALINE 0.65 % NASAL SPRAY 45ML BOTTLE EACHNOSTRI SCH ×4 (06:03→21:26)
[2021-01-11] MEDS: NYSTATIN (MOUTH-THROAT) 500,000 UNITS/5 ML SUSP MT SCH ×4 (06:04→21:27)
[2021-01-11] MEDS: InsuLIN REG 1unit/0.01ml Soln (100units/ml) SC SCH ×3 (06:04→18:04)
[2021-01-11] MEDS: ACCU-CHEK COMFORT CURVE STRIP VI SCH ×3 (06:04→17:39)
[2021-01-11 06:06] LABS: BUN/Creatinine Ratio 29.9; Calcium 9.6 mg/dL (8.5-10.1)
[2021-01-11] MEDS: ALBUTEROL SULF HFA 90MCG INH 200DOSE IN PRN ×2 (06:10→22:01)
[2021-01-11] MEDS: BUDESONIDE (INHALATION) 180 MCG IH IN SCH ×2 (06:10→22:01)
[2021-01-11 06:20] LABS: Basophils # (auto) 0 10 ^3/uL (0-0.2); Basophils % (auto) 0.2 % (0.0-2.0); Eosinophils # (auto) 0 10 ^3/uL (0-0.8); Eosinophils % (auto) 0.1 % (0.0-7.0); Hematocrit 46.4 % (41.0-53.0); Hemoglobin 15.7 g/dL (13.5-17.5); Lymphocytes # (auto) 0.6 10 ^3/uL (0.4-5.4); Lymphocytes % (auto) 6.1 % (10.0-50.0); Mean Corpuscular Hgb Conc. 33.8 g/dL (32.0-36.0); Mean Corpuscular Volume 88.6 fL (80.0-100.0); Monocytes # (auto) 0.3 10 ^3/uL (0-1.3); Neutrophils # (auto) 8.2 10 ^3/uL (1.6-8.6); Neutrophils % (auto) 90.6 % (37.0-80.0); Nucleated Red Blood Cells % 0.1 %; Red Blood Cells 5.24 10^6/uL (4.5-5.90); Red Cell Distribution Width 13.6 % (11.8-14.3)
[2021-01-11] MEDS: Ensure HIGH Protein Chocolate 8oz Bottle PO SCH ×3 (08:06→18:18)
[2021-01-11] MEDS: cefTRIAXone 1GM/50ML D5W 50 ML IV SCH (08:59)
[2021-01-11] MEDS: DexAMETHasone SOD PHOS 4 MG/1ML SDV INJ IV SCH ×2 (08:59→21:27)
[2021-01-11 09:00] VITALS: BP 112/81
[2021-01-11] MEDS: PANTOPRAZOLE 40 MG TAB PO SCH (09:26)
[2021-01-11] MEDS: ASCORBIC ACID 1,000 MG TAB PO SCH (09:27)
[2021-01-11] MEDS: CHOLECALCIFEROL (VITD3) 2,000 UNIT CAP/TAB PO SCH (09:27)
[2021-01-11] MEDS: ASPirin 81 mg TAB PO SCH (09:27)
[2021-01-11] MEDS: ENOXAPARIN SOD 40 MG/0.4 ML SYRINGE SC SCH ×2 (09:27→21:27)
[2021-01-11] MEDS: FLUCONAZOLE 100 MG TAB PO SCH (09:28)
[2021-01-11] MEDS: ZINC SULFATE 220mg CAP or TAB PO SCH (09:28)
[2021-01-11] MEDS: AZITHROMYCIN 250 MG TAB PO SCH (09:28)
[2021-01-11] MEDS: CLOPIDOGREL BISULFATE 75 MG TAB PO SCH (09:29)
[2021-01-11 13:00] VITALS: BP 119/82
[2021-01-11 17:00] VITALS: BP 107/74
[2021-01-11] MEDS: INSULIN LANTUS (GLARGINE) 1 /0.01ml (100units/ml) SC SCH (18:06)
[2021-01-11] MEDS: ATORVASTATIN 20 MG TAB PO SCH (21:27)
[2021-01-11 21:30] VITALS: BP 113/74
[2021-01-12] MEDS: ACCU-CHEK COMFORT CURVE STRIP VI SCH ×5 (00:24→23:07)
[2021-01-12] MEDS: InsuLIN REG 1unit/0.01ml Soln (100units/ml) SC SCH ×5 (00:29→23:09)
[2021-01-12 05:32] VITALS: BP 123/82
[2021-01-12] MEDS: SALINE 0.65 % NASAL SPRAY 45ML BOTTLE EACHNOSTRI SCH ×4 (06:06→23:06)
[2021-01-12] MEDS: NYSTATIN (MOUTH-THROAT) 500,000 UNITS/5 ML SUSP MT SCH ×4 (06:16→23:06)
[2021-01-12] MEDS: BUDESONIDE (INHALATION) 180 MCG IH IN SCH ×2 (06:39→22:07)
[2021-01-12] MEDS: ALBUTEROL SULF HFA 90MCG INH 200DOSE IN PRN ×2 (06:39→22:07)
[2021-01-12 09:00] VITALS: BP 105/68
[2021-01-12] MEDS: DexAMETHasone SOD PHOS 4 MG/1ML SDV INJ IV SCH ×2 (09:02→23:06)
[2021-01-12] MEDS: CHOLECALCIFEROL (VITD3) 2,000 UNIT CAP/TAB PO SCH (09:02)
[2021-01-12] MEDS: cefTRIAXone 1GM/50ML D5W 50 ML IV SCH (09:02)
[2021-01-12] MEDS: ASCORBIC ACID 1,000 MG TAB PO SCH (09:02)
[2021-01-12] MEDS: ZINC SULFATE 220mg CAP or TAB PO SCH (09:03)
[2021-01-12] MEDS: PANTOPRAZOLE 40 MG TAB PO SCH (09:03)
[2021-01-12] MEDS: ASPirin 81 mg TAB PO SCH (09:03)
[2021-01-12] MEDS: ENOXAPARIN SOD 40 MG/0.4 ML SYRINGE SC SCH ×2 (09:03→23:07)
[2021-01-12] MEDS: FLUCONAZOLE 100 MG TAB PO SCH (09:03)
[2021-01-12] MEDS: AZITHROMYCIN 250 MG TAB PO SCH (09:04)
[2021-01-12] MEDS: CLOPIDOGREL BISULFATE 75 MG TAB PO SCH (09:05)
[2021-01-12] MEDS: Ensure HIGH Protein Chocolate 8oz Bottle PO SCH ×3 (09:05→18:18)
[2021-01-12 13:00] VITALS: BP 128/79
[2021-01-12 17:16] VITALS: BP 114/72
[2021-01-12] MEDS: INSULIN LANTUS (GLARGINE) 1 /0.01ml (100units/ml) SC SCH (18:19)
[2021-01-12 21:56] VITALS: BP 107/72
[2021-01-12] MEDS: ATORVASTATIN 20 MG TAB PO SCH (23:07)
[2021-01-13 05:01] VITALS: BP 117/74
[2021-01-13 05:52] LABS: Basophils # (auto) 0 10 ^3/uL (0-0.2); Basophils % (auto) 0.1 % (0.0-2.0); Eosinophils # (auto) 0 10 ^3/uL (0-0.8); Hematocrit 44.3 % (41.0-53.0); Hemoglobin 15.1 g/dL (13.5-17.5); Lymphocytes # (auto) 0.5 10 ^3/uL (0.4-5.4); Lymphocytes % (auto) 4.3 % (10.0-50.0); Mean Corpuscular Hemoglobin 30.5 pg (28.0-32.0); Mean Corpuscular Hgb Conc. 34.1 g/dL (32.0-36.0); Mean Corpuscular Volume 89.4 fL (80.0-100.0); Monocytes # (auto) 0.3 10 ^3/uL (0-1.3); Monocytes % (auto) 2.5 % (0.0-12.0); Neutrophils # (auto) 11.3 10 ^3/uL (1.6-8.6); Neutrophils % (auto) 93.1 % (37.0-80.0); Red Blood Cells 4.95 10^6/uL (4.5-5.90); Red Cell Distribution Width 13.5 % (11.8-14.3); White Blood Cell 12.1 10^3/uL (4.4-10.8)
[2021-01-13] MEDS: BUDESONIDE (INHALATION) 180 MCG IH IN SCH ×2 (06:04→20:01)
[2021-01-13] MEDS: ALBUTEROL SULF HFA 90MCG INH 200DOSE IN PRN ×2 (06:04→20:02)
[2021-01-13] MEDS: SALINE 0.65 % NASAL SPRAY 45ML BOTTLE EACHNOSTRI SCH ×4 (06:16→22:58)
[2021-01-13] MEDS: NYSTATIN (MOUTH-THROAT) 500,000 UNITS/5 ML SUSP MT SCH ×4 (06:41→22:58)
[2021-01-13] MEDS: ACCU-CHEK COMFORT CURVE STRIP VI SCH ×4 (06:41→22:59)
[2021-01-13] MEDS: InsuLIN REG 1unit/0.01ml Soln (100units/ml) SC SCH ×3 (07:01→17:56)
[2021-01-13 08:00] VITALS: BP 105/70
[2021-01-13 09:00] VITALS: BP 105/70
[2021-01-13] MEDS: Ensure HIGH Protein Chocolate 8oz Bottle PO SCH ×3 (09:08→18:25)
[2021-01-13] MEDS: ASPirin 81 mg TAB PO SCH (09:09)
[2021-01-13] MEDS: cefTRIAXone 1GM/50ML D5W 50 ML IV SCH (09:09)
[2021-01-13] MEDS: DexAMETHasone SOD PHOS 4 MG/1ML SDV INJ IV SCH ×2 (09:09→22:58)
[2021-01-13] MEDS: ZINC SULFATE 220mg CAP or TAB PO SCH (09:10)
[2021-01-13] MEDS: CLOPIDOGREL BISULFATE 75 MG TAB PO SCH (09:10)
[2021-01-13] MEDS: FLUCONAZOLE 100 MG TAB PO SCH (09:10)
[2021-01-13] MEDS: PANTOPRAZOLE 40 MG TAB PO SCH (09:10)
[2021-01-13] MEDS: ASCORBIC ACID 1,000 MG TAB PO SCH (09:11)
[2021-01-13] MEDS: ENOXAPARIN SOD 40 MG/0.4 ML SYRINGE SC SCH ×2 (09:11→22:58)
[2021-01-13] MEDS: AZITHROMYCIN 250 MG TAB PO SCH (09:11)
[2021-01-13] MEDS: CHOLECALCIFEROL (VITD3) 2,000 UNIT CAP/TAB PO SCH (09:11)
[2021-01-13 13:00] VITALS: BP 110/70
[2021-01-13 17:00] VITALS: BP 132/67
[2021-01-13] MEDS: INSULIN LANTUS (GLARGINE) 1 /0.01ml (100units/ml) SC SCH (17:56)
[2021-01-13 22:00] VITALS: BP 124/78
[2021-01-13] MEDS: ATORVASTATIN 20 MG TAB PO SCH (22:58)
[2021-01-14] MEDS: InsuLIN REG 1unit/0.01ml Soln (100units/ml) SC SCH ×3 (00:03→12:37)
[2021-01-14 05:00] VITALS: BP 112/70
[2021-01-14] MEDS: SALINE 0.65 % NASAL SPRAY 45ML BOTTLE EACHNOSTRI SCH ×2 (05:13→12:40)
[2021-01-14] MEDS: BUDESONIDE (INHALATION) 180 MCG IH IN SCH (06:05)
[2021-01-14] MEDS: ALBUTEROL SULF HFA 90MCG INH 200DOSE IN PRN (06:05)
[2021-01-14] MEDS: ACCU-CHEK COMFORT CURVE STRIP VI SCH ×2 (06:21→12:30)
[2021-01-14] MEDS: NYSTATIN (MOUTH-THROAT) 500,000 UNITS/5 ML SUSP MT SCH ×2 (06:24→12:39)
[2021-01-14] MEDS: Ensure HIGH Protein Chocolate 8oz Bottle PO SCH ×2 (08:45→12:39)
[2021-01-14 09:00] VITALS: BP 101/64
[2021-01-14] MEDS: DexAMETHasone SOD PHOS 4 MG/1ML SDV INJ IV SCH (09:17)
[2021-01-14] MEDS: ZINC SULFATE 220mg CAP or TAB PO SCH (09:18)
[2021-01-14] MEDS: CLOPIDOGREL BISULFATE 75 MG TAB PO SCH (09:18)
[2021-01-14] MEDS: ASPirin 81 mg TAB PO SCH (09:18)
[2021-01-14] MEDS: FLUCONAZOLE 100 MG TAB PO SCH (09:18)
[2021-01-14] MEDS: CHOLECALCIFEROL (VITD3) 2,000 UNIT CAP/TAB PO SCH (09:19)
[2021-01-14] MEDS: AZITHROMYCIN 250 MG TAB PO SCH (09:19)
[2021-01-14] MEDS: ASCORBIC ACID 1,000 MG TAB PO SCH (09:19)
[2021-01-14] MEDS: PANTOPRAZOLE 40 MG TAB PO SCH (09:19)
[2021-01-14] MEDS: cefTRIAXone 1GM/50ML D5W 50 ML IV SCH (09:22)
[2021-01-14] MEDS: ENOXAPARIN SOD 40 MG/0.4 ML SYRINGE SC SCH (10:00)
[2021-01-14 13:00] VITALS: BP 133/81
[2021-01-14 16:50] VITALS: BP 108/66
== END 2021-01-14 18:28 | disposition home or self-care (01) | DRG 871 ==
LOC: ER 10:19 → TELE 18:19 → TELE-EAST 20:45
PROVIDERS: ADMIT Family Medicine; ATTEND Internal Medicine
PROC: XW033E5 Introduction of Remdesivir Anti-infective into Peripheral Vein, Percutaneous Approach, New Technology Group 5 (ICD-10-PCS; principal; 2021-01-03)
PROC: XW033H5 Introduction of Tocilizumab into Peripheral Vein, Percutaneous Approach, New Technology Group 5 (ICD-10-PCS; 2021-01-03)
DX: A41.89 Other specified sepsis (principal); I21.A1 Myocardial infarction type 2; J12.82 Pneumonia due to coronavirus disease 2019; J96.01 Acute respiratory failure with hypoxia; U07.1 COVID-19; D89.834 Cytokine release syndrome, grade 4; E87.1 Hypo-osmolality and hyponatremia; I50.22 Chronic systolic (congestive) heart failure; J98.11 Atelectasis; E78.5 Hyperlipidemia, unspecified; E11.65 Type 2 diabetes mellitus with hyperglycemia; I11.0 Hypertensive heart disease with heart failure; I25.10 Atherosclerotic heart disease of native coronary artery without angina pectoris; I25.5 Ischemic cardiomyopathy; Z79.02 Long term (current) use of antithrombotics/antiplatelets; Z79.84 Long term (current) use of oral hypoglycemic drugs; Z82.49 Family history of ischemic heart disease and other diseases of the circulatory system; Z83.3 Family history of diabetes mellitus; Z95.5 Presence of coronary angioplasty implant and graft
CPT/HCPCS: 36415; 36600; 71045; 71275; 80048; 80053; 80061; 81001; 82306; 82728; 82805; 82962; 83605; 83615; 83735; 83880; 84132; 84443; 84484; 85025; 85379; 85610; 85730; 86141; 87040; 87426; 93005; 94640; 96361; 96365; 96375; 99291; G0378; J0696; J1100; J1815

== ENCOUNTER → 2021-06-18 | Outpatient (CLI) | payer MEDICARE, BC ==
[~2021-06-18] VITALS: Ht 180.3 cm; Wt 95.3 kg
[~2021-06-18] MED LIST: ASPI-325 PO; ATOR20TA50 PO; CLOP75TA70 PO; GLIP10TA9 PO; LISI-275 PO; LOS25T PO; TICA90TA PO
== END | disposition home or self-care (01) ==
LOC: Rad HDHVI 09:02
PROVIDERS: ATTEND Internal Medicine Cardiovascular Disease
DX: I25.10 Atherosclerotic heart disease of native coronary artery without angina pectoris (principal); E11.9 Type 2 diabetes mellitus without complications; E78.5 Hyperlipidemia, unspecified
CPT/HCPCS: 78452; 93017; 96374; A9500

== ENCOUNTER 2021-08-21 07:21 | Day surgery (SDC) | payer MEDICARE, BC ==
[2021-08-21] VITALS (8 sets, daily range): BP systolic 109–133; BP diastolic 72–84
[~2021-08-21] VITALS: Ht 182.9 cm; Wt 93.0 kg
[~2021-08-21 07:21] MED LIST changes: -ASPI-325 PO; +ASPI-543 PO; -ATOR20TA50 PO; +ATOR40TA52 PO; +CHOL20007 PO; +CLOP75TA28 PO; -CLOP75TA70 PO; -LISI-275 PO; -LOS25T PO; +LOSA25TA2 PO; -TICA90TA PO; +TRIATAB3 PO; +[UNRECOGNIZED DRUG - CODE] PO
[2021-08-21] MEDS ORDERED: fentaNYL CITRATE 100 MCG/2 ML VL ONE (08:55)
[2021-08-21] MEDS ORDERED: MIDAZOLAM HCL 2MG/2ML 2ml VIAL (1mg/ml) ONE (08:55)
[2021-08-21] MEDS ORDERED: SODIUM CHL 0.9% 50 ML ONE (08:55)
[2021-08-21] MEDS ORDERED: ANGIOMAX 250 MG VIAL IV ONE (08:55)
[2021-08-21] MEDS ORDERED: IOHEXOL 350 MG/ML 100ML IJ ONE ×2 (08:56→09:50)
[2021-08-21] MEDS ORDERED: LIDOCAINE 2%HCL (LOCAL ANESTH.) INJ 20ML MDV ONE (08:56)
[2021-08-21] MEDS ORDERED: CLOPIDOGREL 300 MG TAB ONE (10:04)
== END 2021-08-21 12:30 | disposition home or self-care (01) ==
LOC: CATH 07:21
PROVIDERS: ATTEND Internal Medicine Cardiovascular Disease
DX: R94.39 Abnormal result of other cardiovascular function study (principal); I25.10 Atherosclerotic heart disease of native coronary artery without angina pectoris; I31.3 Pericardial effusion (noninflammatory); I10 Essential (primary) hypertension; E78.5 Hyperlipidemia, unspecified; E11.42 Type 2 diabetes mellitus with diabetic polyneuropathy; E11.21 Type 2 diabetes mellitus with diabetic nephropathy; E11.59 Type 2 diabetes mellitus with other circulatory complications; I25.2 Old myocardial infarction; E66.9 Obesity, unspecified; Z98.890 Other specified postprocedural states; Z79.899 Other long term (current) drug therapy; Z83.3 Family history of diabetes mellitus; Z82.49 Family history of ischemic heart disease and other diseases of the circulatory system; Z20.822 Contact with and (suspected) exposure to COVID-19; Z79.02 Long term (current) use of antithrombotics/antiplatelets; Z79.82 Long term (current) use of aspirin; Z68.27 Body mass index [BMI] 27.0-27.9, adult
CPT/HCPCS: 75625; 92920; 93458; 93571; 93572; C1726; C1760; C1769; C1874; C1887; C1894; C9600; J0583; J1644; J2250; Q9967; U0003; 99152; 99153

== ENCOUNTER → 2021-10-07 | Outpatient (CLI) | payer MEDICARE, BC | END | disposition home or self-care (01) | LOC: Rad HDHVI 12:52 | PROVIDERS: ATTEND Internal Medicine Cardiovascular Disease | DX: I34.0 Nonrheumatic mitral (valve) insufficiency (principal); I71.2 Thoracic aortic aneurysm, without rupture; E78.5 Hyperlipidemia, unspecified | CPT/HCPCS: 93306 ==

== ENCOUNTER → 2022-02-12 | Outpatient (CLI) | payer MEDICARE, BC ==
[~2022-02-12] VITALS: Ht 180.3 cm; Wt 95.3 kg
== END | disposition home or self-care (01) ==
LOC: Rad HDHVI 13:33
PROVIDERS: ATTEND Internal Medicine Cardiovascular Disease
DX: I11.0 Hypertensive heart disease with heart failure (principal); I50.43 Acute on chronic combined systolic (congestive) and diastolic (congestive) heart failure; I25.10 Atherosclerotic heart disease of native coronary artery without angina pectoris; E11.9 Type 2 diabetes mellitus without complications; E78.00 Pure hypercholesterolemia, unspecified; Z82.49 Family history of ischemic heart disease and other diseases of the circulatory system
CPT/HCPCS: 78452; 93017; 96374; A9500

== ENCOUNTER → 2022-07-07 | Outpatient (CLI) | payer MEDICARE, BC | END | disposition home or self-care (01) | LOC: Rad HDHVI 13:03 | PROVIDERS: ATTEND Internal Medicine Cardiovascular Disease | DX: I34.0 Nonrheumatic mitral (valve) insufficiency (principal); I11.9 Hypertensive heart disease without heart failure; R00.2 Palpitations | CPT/HCPCS: 93306 ==

== ENCOUNTER → 2022-12-07 | Outpatient (CLI) | payer MEDICARE, BC ==
[~2022-12-07] MED LIST changes: -LOSA25TA2 PO; +LOSA25TA5 PO
== END | disposition home or self-care (01) ==
LOC: Rad HDHVI 14:01
PROVIDERS: ATTEND Internal Medicine Cardiovascular Disease
DX: I34.0 Nonrheumatic mitral (valve) insufficiency (principal)
CPT/HCPCS: 93306

== ENCOUNTER → 2023-04-26 | Outpatient (CLI) | payer MEDICARE, BC ==
[~2023-04-26] VITALS: Ht 180.3 cm; Wt 97.5 kg
== END | disposition home or self-care (01) ==
LOC: Rad HDHVI 09:05
PROVIDERS: ATTEND Internal Medicine Cardiovascular Disease
DX: I11.0 Hypertensive heart disease with heart failure (principal); I50.9 Heart failure, unspecified; I25.10 Atherosclerotic heart disease of native coronary artery without angina pectoris; I25.5 Ischemic cardiomyopathy; R06.09 Other forms of dyspnea; I25.2 Old myocardial infarction; E11.9 Type 2 diabetes mellitus without complications; E78.5 Hyperlipidemia, unspecified; Z82.49 Family history of ischemic heart disease and other diseases of the circulatory system
CPT/HCPCS: 78452; 93017; 96374; A9500

== ENCOUNTER → 2024-08-30 | Outpatient (CLI) | payer MEDICARE, BC ==
--- NOTE | 2024-08-30 14:24 | DVH ---
EXAM: CT HEAD WITHOUT CONTRAST INDICATION: POST HEAD TRAUMA TECHNIQUE: CT of the head without intravenous contrast. Coronal and sagittal reformatted images are s ubmitted. Radiation Dose : 1. Head: CT Dose: CTDI volume is 49.03 mGy. Dose-length product is 900.65 mGy*cm The dose indicators for CT are the volume Computed Tomography (CT) Dose Index (CTDIvol) and the Dose Length Product (DLP), and are measured in units of mGy and mGy-cm, respectively. These indicators are not patient dose, but values generated from the CT scanner acquisition factors. The report includes radiation exposure data for exposures received during this examination. All CT scans at this medical facility are performed using dose modulation techniques as appropriate to a performed exam including the following: Automated exposure control was utilized; adjustment of the MA and/or KV according to patient size; and use of iterative reconstruction technique. COMPARISON: None FINDINGS: There is no evidence of acute intracranial hemorrhage, extra-axial collection, mass effect, midline s hift, herniation or hydrocephalus. The ventricles, sulci and cisterns are age appropriate. The talamantes-white differentiation is intact. The visualized paranasal sinuses and mastoid air cells are clear. No depressed calvarial fracture. The surrounding soft tissues are unremarkable. IMPRESSION: 1. No evidence of acute intracranial abnormality.
== END | disposition home or self-care (01) ==
LOC: Rad HDHVI 09:38
PROVIDERS: ATTEND Internal Medicine Cardiovascular Disease
DX: S09.90XA Unspecified injury of head, initial encounter (principal); X58.XXXA Exposure to other specified factors, initial encounter; Y93.89 Activity, other specified; Y92.89 Other specified places as the place of occurrence of the external cause; Y99.8 Other external cause status
CPT/HCPCS: 70450

== ENCOUNTER → 2024-09-25 | Outpatient (CLI) | payer MEDICARE, BC | END | disposition home or self-care (01) | LOC: Rad HDHVI 10:02 | PROVIDERS: ATTEND Internal Medicine Cardiovascular Disease | DX: I34.0 Nonrheumatic mitral (valve) insufficiency (principal); I10 Essential (primary) hypertension; E78.5 Hyperlipidemia, unspecified | CPT/HCPCS: 93306 ==

== ENCOUNTER 2024-09-27 10:04 | Outpatient (CLI) | payer MEDICARE, BC | END 2024-09-27 17:00 | disposition home or self-care (01) | LOC: Rad HDHVI 10:04 | PROVIDERS: ATTEND Internal Medicine Cardiovascular Disease | DX: I11.0 Hypertensive heart disease with heart failure (principal); I50.43 Acute on chronic combined systolic (congestive) and diastolic (congestive) heart failure | CPT/HCPCS: 93880 ==

== ENCOUNTER 2024-10-04 09:31 | Outpatient (CLI) | payer MEDICARE, BC ==
[~2024-10-04] VITALS: Ht 182.9 cm; Wt 97.5 kg
== END 2024-10-04 17:00 | disposition home or self-care (01) ==
LOC: Rad HDHVI 09:31
PROVIDERS: ATTEND Internal Medicine Cardiovascular Disease
DX: I49.1 Atrial premature depolarization (principal); R00.0 Tachycardia, unspecified; I11.0 Hypertensive heart disease with heart failure; I50.43 Acute on chronic combined systolic (congestive) and diastolic (congestive) heart failure; I25.10 Atherosclerotic heart disease of native coronary artery without angina pectoris; E11.9 Type 2 diabetes mellitus without complications; I34.0 Nonrheumatic mitral (valve) insufficiency; I25.2 Old myocardial infarction; R06.09 Other forms of dyspnea; E78.5 Hyperlipidemia, unspecified; Z82.49 Family history of ischemic heart disease and other diseases of the circulatory system
CPT/HCPCS: 78452; 93017; A9500; 96374